=== PATIENT | female | born 1985 | race Caucasian/White ===

== ENCOUNTER 2018-06-14 13:58 | Emergency (ER) | payer OTHER ==
[~2018-06-14] VITALS: Ht 165.1 cm; Wt 54.4 kg
[2018-06-14] MEDS: IBUPROFEN 600 MG TABLET PO ONE (15:10)
--- NOTE | 2018-06-14 15:13 | NUR ---
MSE COMPLETED, PT D/C'D HOME, ACI GIVEN. PT AMBULATED W/O DIFF/TOOK ALL BELONGINGS.
[2018-06-14 15:16] VITALS: BP 108/80
== END 2018-06-14 15:16 | disposition home or self-care (01) ==
LOC: ER 14:07
DX: O26.891 Other specified pregnancy related conditions, first trimester (principal); R10.9 Unspecified abdominal pain; Z3A.01 Less than 8 weeks gestation of pregnancy
CPT/HCPCS: 36415; A4663